=== PATIENT | male | born 1950 | race Hispanic/Latino ===

== ENCOUNTER 2017-08-16 10:02 | Outpatient (CLI) | payer MEDICARE ==
--- NOTE | 2017-08-16 11:59 | ULT ---
RIGHT UPPER QUADRANT ABDOMINAL ULTRASOUND: COMPARISON: 04/19/13. HISTORY: Hepatomegaly. TECHNIQUE: Multiplanar, hernandez scale, and color Doppler images were obtained in a right upper quadrant abdominal u ltrasound. FINDINGS: The liver is normal in echogenicity without focal lesions or intrahepatic ductal dilatation. There a re multiple shadowing gallstones in the gallbladder. There is no gallbladder wall thickening or dmitry cholecystic fluid. The common bile duct is upper limits of normal measuring 6-7 mm in size. The pancreas could not be visualized. There are multiple small echogenic foci in the right kidney me asuring up to 5 mm in size. These may represent nonobstructing renal calcifications. There is no ev idence of hydronephrosis in the right kidney which measures 13.4 cm in length. IMPRESSION: 1. Cholelithiasis. 2. Possible nonobstructing right renal calcifications. POS: [facility]
== END 2017-08-16 10:03 | disposition home or self-care (01) ==
LOC: ULT 10:02
PROVIDERS: ATTEND Family Medicine
DX: R16.0 Hepatomegaly, not elsewhere classified (principal); K80.20 Calculus of gallbladder without cholecystitis without obstruction
CPT/HCPCS: 76705

== ENCOUNTER 2018-01-23 07:20 | Outpatient (CLI) | payer MEDICARE, MEDICAID | END 2018-01-23 07:21 | disposition home or self-care (01) | LOC: BICULT 07:20 | PROVIDERS: ATTEND Family Medicine | DX: Z13.6 Encounter for screening for cardiovascular disorders (principal); I70.0 Atherosclerosis of aorta | CPT/HCPCS: 76706 ==

== ENCOUNTER 2020-10-24 14:39 | Outpatient (CLI) | payer MEDICARE, MEDICAID | END 2020-10-24 14:40 | disposition home or self-care (01) | LOC: BICRAD 14:39 | PROVIDERS: ATTEND Internal Medicine Hematology & Oncology | DX: C90.00 Multiple myeloma not having achieved remission (principal); E88.09 Other disorders of plasma-protein metabolism, not elsewhere classified | CPT/HCPCS: 77075 ==

== ENCOUNTER 2021-09-20 08:22 | Outpatient (CLI) | payer MEDICARE, MEDICAID ==
[2021-09-20 08:52] LABS: Estimated GFR-MDRD - POC Greater than 90
[2021-09-20] MEDS ORDERED: Iopamidol-370 76% 500 ML 1 ML ONE (09:38)
== END 2021-09-20 08:23 | disposition home or self-care (01) ==
LOC: BICCT 08:22
PROVIDERS: ATTEND Physician Assistant Medical
DX: K21.9 Gastro-esophageal reflux disease without esophagitis (principal); R63.4 Abnormal weight loss; K80.20 Calculus of gallbladder without cholecystitis without obstruction; K44.9 Diaphragmatic hernia without obstruction or gangrene
CPT/HCPCS: 74177; 82565

== ENCOUNTER 2021-09-28 14:44 | Outpatient (CLI) | payer MEDICARE, MEDICAID | END 2021-09-28 14:45 | disposition home or self-care (01) | LOC: RAD 14:44 | PROVIDERS: ATTEND Physician Assistant Medical | DX: K21.9 Gastro-esophageal reflux disease without esophagitis (principal); G31.84 Mild cognitive impairment of uncertain or unknown etiology; R63.4 Abnormal weight loss; R68.81 Early satiety | CPT/HCPCS: 71046 ==

== ENCOUNTER 2022-01-22 14:24 | Outpatient (CLI) | payer MEDICARE, MEDICAID | END 2022-01-22 14:25 | disposition home or self-care (01) | LOC: BICRAD 14:24 | PROVIDERS: ATTEND Family Medicine | DX: R06.89 Other abnormalities of breathing (principal); J84.10 Pulmonary fibrosis, unspecified | CPT/HCPCS: 71046 ==

== ENCOUNTER 2022-03-28 11:46 | Inpatient (IN) | payer OTHER, MEDICAID ==
[2022-03-28 13:53] LABS: #Eosinphils 0.2 thou/uL (0.0-0.7); #Lymphocytes 1.5 thou/uL (1.20-3.40); #Monocytes 0.6 thou/uL (0.11-0.59); #Neutrophils 5.7 thou/uL (1.40-6.50); %Basophils 0.5 % (0.0-1.0); %Eosinophils 2.4 % (0.0-10.0); %Lymphocytes 18.6 % (21.0-51.0); %Monocytes 7.5 % (0.0-10.0); Hemoglobin 15.9 g/dL (14.0-18.0); Mean Corpuscular HGB CONC 33.6 g/dL (32.0-36.0); Mean Corpuscular Hemoglobin 33.8 pg (27.0-31.0); Mean Platelet Volume 6.7 fL (7.4-10.4); Platelet Count 257 thou/uL (130-400); RBC Distribution Width 11.7 % (11.5-14.5); Red Blood Cell (RBC) Count 4.71 mill/uL (4.70-6.10); White Blood Cell (WBC) Count 8.1 thou/uL (4.8-10.8)
[2022-03-28] MEDS ORDERED: Iopamidol-370 76% 500 ML 1 ML ONE (14:10)
[2022-03-28 14:14] LABS: ALT (SGPT) 10 U/L (8-55); AST (SGOT) 14 U/L (5-34); Albumin 3.6 g/dL (3.4-4.8); Alkaline Phosphatase 82 U/L (40-110); Anion Gap 12 mmol/L (10-20); BUN (Urea Nitrogen) 9 mg/dL (8.4-25.7); Bilirubin, Total 0.6 mg/dL (0.2-1.2); Calc. Creatinine Clearance 0 mL/min (70-130); Calcium 9.5 mg/dL (7.8-10.44); Carbon Dioxide 29 mmol/L (23-31); Chloride 100 mmol/L (98-107); Estimated GFR 95; Globulin 4.6 g/dL (2.4-3.5); Glucose 110 mg/dL (83-110); Potassium 4.2 mmol/L (3.5-5.1); Protein, Total 8.2 g/dL (5.8-8.1); Sodium 137 mmol/L (136-145)
[2022-03-28 16:37] LABS: Bacteria/HPF None Seen HPF (None Seen); Bilirubin Negative (Negative); Blood, Urine Negative (Negative); Clarity Clear (Clear); Glucose, Urine (Dipstick) Normal (Negative); Ketone, Urine Negative (Negative); Leukocyte 75 Leu/uL (Negative); Nitrite Negative (Negative); Protein, Urine (Dipstick) Negative (Neg-Trace); RBC/HPF 0-3 HPF (0-3); Specific Gravity, Urine 1.033 (1.002-1.036); Squamous Epithelial 0-3 HPF (0-3); Urobilinogen Normal mg/dL (Less than 2)
[2022-03-28] MEDS: Melatonin 3 MG TAB PO SCH (21:25)
[2022-03-28] MEDS ORDERED: Acetaminophen 650 MG Suppository PR PRN (22:17)
[2022-03-28] MEDS ORDERED: Ondansetron PF 4 MG/2 ML Vial IVP PRN (22:17)
[2022-03-28] MEDS ORDERED: Ondansetron ODT 4 MG TAB PO PRN (22:17)
[2022-03-29] MEDS: methylPREDNISolone Sod Succ 40 MG VIAL IVP SCH ×2 (00:45→08:25)
[2022-03-29 04:49] LABS: #Eosinphils 0.1 thou/uL (0.0-0.7); #Lymphocytes 0.8 thou/uL (1.20-3.40); #Monocytes 0.1 thou/uL (0.11-0.59); #Neutrophils 5.8 thou/uL (1.40-6.50); %Basophils 0.3 % (0.0-1.0); %Eosinophils 1.4 % (0.0-10.0); %Lymphocytes 11.5 % (21.0-51.0); %Monocytes 1.4 % (0.0-10.0); %Neutrophils 85.5 % (42.0-75.0); Hemoglobin 15.5 g/dL (14.0-18.0); Mean Corpuscular HGB CONC 31.8 g/dL (32.0-36.0); Mean Corpuscular Hemoglobin 32.5 pg (27.0-31.0); Mean Platelet Volume 6.7 fL (7.4-10.4); Platelet Count 271 thou/uL (130-400); RBC Distribution Width 11.8 % (11.5-14.5); Red Blood Cell (RBC) Count 4.76 mill/uL (4.70-6.10); White Blood Cell (WBC) Count 6.8 thou/uL (4.8-10.8)
[2022-03-29 04:58] LABS: Anion Gap 14 mmol/L (10-20); BUN (Urea Nitrogen) 8 mg/dL (8.4-25.7); Calc. Creatinine Clearance 78 mL/min (70-130); Calcium 9.7 mg/dL (7.8-10.44); Carbon Dioxide 26 mmol/L (23-31); Chloride 101 mmol/L (98-107); Estimated GFR 97; Glucose 108 mg/dL (83-110); Potassium 4.9 mmol/L (3.5-5.1); Sodium 136 mmol/L (136-145)
[2022-03-29] MEDS: Amlodipine 10 MG TAB PO SCH (08:25)
[2022-03-29] MEDS: Donepezil HCl 5 MG TAB PO SCH (08:25)
[2022-03-29] MEDS: Enoxaparin Sodium 40 MG/0.4 ML SYRINGE SC SCH (08:25)
[2022-03-29 08:52] LABS: SARS-CoV-2 NAA Rapid Test Not Detected (NotDetected)
[2022-03-29] MEDS: Melatonin 3 MG TAB PO SCH (21:34)
[2022-03-30] MEDS: Enoxaparin Sodium 40 MG/0.4 ML SYRINGE SC SCH (08:45)
[2022-03-30] MEDS: Donepezil HCl 5 MG TAB PO SCH (08:45)
[2022-03-30] MEDS: methylPREDNISolone Sod Succ 40 MG VIAL IVP SCH (08:45)
[2022-03-30] MEDS: Amlodipine 10 MG TAB PO SCH (11:04)
[2022-03-30] MEDS: Melatonin 3 MG TAB PO SCH (20:28)
[2022-03-30] MEDS: Benzonatate 100 MG CAP PO PRN (20:29)
[2022-03-30] MEDS: Guaifenesin DM 100-10/5 ML UDCUP PO PRN (20:29)
[2022-03-31] MEDS: Amlodipine 10 MG TAB PO SCH (09:29)
[2022-03-31] MEDS: methylPREDNISolone Sod Succ 40 MG VIAL IVP SCH (09:29)
[2022-03-31] MEDS: Donepezil HCl 5 MG TAB PO SCH (09:29)
[2022-03-31] MEDS: Enoxaparin Sodium 40 MG/0.4 ML SYRINGE SC SCH (09:29)
[2022-03-31] MEDS ORDERED: Docusate Sodium 10 MG/1 ML Oral Suspension PO PRN (15:25)
[2022-03-31] MEDS: Polyethylene Glycol 3350 17 GM Packet PO PRN ×2 (15:50→21:47)
[2022-03-31] MEDS: Guaifenesin DM 100-10/5 ML UDCUP PO PRN (21:47)
[2022-03-31] MEDS: Melatonin 3 MG TAB PO SCH (21:48)
[2022-03-31] MEDS: Benzonatate 100 MG CAP PO PRN (21:48)
[2022-04-01] MEDS: Guaifenesin DM 100-10/5 ML UDCUP PO PRN (09:57)
[2022-04-01] MEDS: Acetaminophen 325 MG TAB PO PRN (09:58)
[2022-04-01] MEDS: methylPREDNISolone Sod Succ 40 MG VIAL IVP SCH (09:58)
[2022-04-01] MEDS: Benzonatate 100 MG CAP PO PRN (10:00)
[2022-04-01] MEDS: Enoxaparin Sodium 40 MG/0.4 ML SYRINGE SC SCH (10:00)
[2022-04-01] MEDS: Amlodipine 10 MG TAB PO SCH (10:01)
[2022-04-01] MEDS: Donepezil HCl 5 MG TAB PO SCH (10:01)
[2022-04-01] MEDS: Polyethylene Glycol 3350 17 GM Packet PO PRN (10:02)
[2022-04-01] MEDS: Melatonin 3 MG TAB PO SCH (20:34)
[2022-04-02] MEDS: Acetaminophen 325 MG TAB PO PRN (05:47)
[2022-04-02] MEDS: methylPREDNISolone Sod Succ 40 MG VIAL IVP SCH (08:37)
[2022-04-02] MEDS: Amlodipine 10 MG TAB PO SCH (08:37)
[2022-04-02] MEDS: Donepezil HCl 5 MG TAB PO SCH (08:37)
[2022-04-02] MEDS: Enoxaparin Sodium 40 MG/0.4 ML SYRINGE SC SCH (08:38)
[2022-04-02 08:57] LABS: Anion Gap 14 mmol/L (10-20); BUN (Urea Nitrogen) 13 mg/dL (8.4-25.7); Calc. Creatinine Clearance 79 mL/min (70-130); Calcium 9.8 mg/dL (7.8-10.44); Carbon Dioxide 35 mmol/L (23-31); Chloride 96 mmol/L (98-107); Estimated GFR 98; Glucose 100 mg/dL (83-110); Potassium 4.2 mmol/L (3.5-5.1); Sodium 141 mmol/L (136-145)
[2022-04-02] MEDS: Melatonin 3 MG TAB PO SCH (21:34)
[2022-04-03] MEDS: Guaifenesin DM 100-10/5 ML UDCUP PO PRN ×2 (04:04→20:48)
[2022-04-03] MEDS: Enoxaparin Sodium 40 MG/0.4 ML SYRINGE SC SCH (08:55)
[2022-04-03] MEDS: Amlodipine 10 MG TAB PO SCH (08:55)
[2022-04-03] MEDS: methylPREDNISolone Sod Succ 40 MG VIAL IVP SCH (08:56)
[2022-04-03] MEDS: Donepezil HCl 5 MG TAB PO SCH (08:56)
[2022-04-03] MEDS: Melatonin 3 MG TAB PO SCH (20:48)
[2022-04-04] MEDS: Polyethylene Glycol 3350 17 GM Packet PO PRN (08:51)
[2022-04-04] MEDS: Donepezil HCl 5 MG TAB PO SCH (08:52)
[2022-04-04] MEDS: Amlodipine 10 MG TAB PO SCH (08:52)
[2022-04-04] MEDS: Enoxaparin Sodium 40 MG/0.4 ML SYRINGE SC SCH (08:52)
[2022-04-04] MEDS: methylPREDNISolone Sod Succ 40 MG VIAL IVP SCH (08:52)
[2022-04-04 17:42] VITALS: BP 134/70; TEMP 98.7
== END 2022-04-04 18:38 | disposition home or self-care (01) | DRG 196 ==
LOC: ERS 11:46 → 2NO 16:48
PROVIDERS: ADMIT Family Medicine; ATTEND Family Medicine
DX: J84.10 Pulmonary fibrosis, unspecified (principal); J96.01 Acute respiratory failure with hypoxia; Z20.822 Contact with and (suspected) exposure to COVID-19; K80.20 Calculus of gallbladder without cholecystitis without obstruction; K59.00 Constipation, unspecified; K21.9 Gastro-esophageal reflux disease without esophagitis; I10 Essential (primary) hypertension; F03.90 Unspecified dementia, unspecified severity, without behavioral disturbance, psychotic disturbance, mood disturbance, and anxiety; Z79.899 Other long term (current) drug therapy; Z87.891 Personal history of nicotine dependence
CPT/HCPCS: 36415; 71045; 71275; 74177; 80048; 80053; 81003; 81015; 83880; 84484; 85025; 87811; 93005; 94640; J1650; J2920; J7620; Q9967; U0002; U0003; U0005

== ENCOUNTER 2022-04-22 21:20 | Emergency (ER) | payer OTHER, MEDICAID ==
[2022-04-22 22:25] LABS: #Eosinphils 0.5 thou/uL (0.0-0.7); #Lymphocytes 2.1 thou/uL (1.20-3.40); #Monocytes 0.6 thou/uL (0.11-0.59); %Basophils 0.1 % (0.0-1.0); %Eosinophils 7.3 % (0.0-10.0); %Lymphocytes 29.2 % (21.0-51.0); %Monocytes 7.7 % (0.0-10.0); %Neutrophils 55.7 % (42.0-75.0); Hemoglobin 15.1 g/dL (14.0-18.0); Mean Corpuscular HGB CONC 32.3 g/dL (32.0-36.0); Mean Corpuscular Hemoglobin 33.1 pg (27.0-31.0); Mean Platelet Volume 6.3 fL (7.4-10.4); Platelet Count 347 thou/uL (130-400); RBC Distribution Width 11.3 % (11.5-14.5); Red Blood Cell (RBC) Count 4.55 mill/uL (4.70-6.10); White Blood Cell (WBC) Count 7.2 thou/uL (4.8-10.8)
[2022-04-22 22:51] LABS: ALT (SGPT) 11 U/L (8-55); AST (SGOT) 16 U/L (5-34); Albumin 3.2 g/dL (3.4-4.8); Alkaline Phosphatase 86 U/L (40-110); Anion Gap 12 mmol/L (10-20); BUN (Urea Nitrogen) 9 mg/dL (8.4-25.7); Bilirubin, Total 0.5 mg/dL (0.2-1.2); Calc. Creatinine Clearance 0 mL/min (70-130); Calcium 9.6 mg/dL (7.8-10.44); Carbon Dioxide 32 mmol/L (23-31); Chloride 97 mmol/L (98-107); Estimated GFR 96; Globulin 4.6 g/dL (2.4-3.5); Glucose 111 mg/dL (83-110); Potassium 4.3 mmol/L (3.5-5.1); Protein, Total 7.8 g/dL (5.8-8.1); Sodium 137 mmol/L (136-145)
[2022-04-22] MEDS ORDERED: Lidocaine Viscous Sol 2% 15 ml UD Cup ONE (23:13)
[2022-04-22] MEDS ORDERED: Mag-Al 1200 mg/1200 mg/30 ML UDCUP ONE (23:13)
[2022-04-22] MEDS ORDERED: Famotidine 20 MG TAB ONE (23:13)
== END 2022-04-23 00:24 | disposition home or self-care (01) ==
LOC: ERS 21:20
DX: K80.50 Calculus of bile duct without cholangitis or cholecystitis without obstruction (principal); K21.9 Gastro-esophageal reflux disease without esophagitis; I10 Essential (primary) hypertension; Z87.891 Personal history of nicotine dependence; Z79.899 Other long term (current) drug therapy
CPT/HCPCS: 36415; 80053; 85025

== ENCOUNTER 2022-04-24 01:37 | Inpatient (IN) | payer OTHER, MEDICAID ==
[2022-04-24 02:22] LABS: #Lymphocytes 1.3 thou/uL (1.20-3.40); #Neutrophils 10.3 thou/uL (1.40-6.50); %Basophils 0.2 % (0.0-1.0); %Eosinophils 0.1 % (0.0-10.0); %Lymphocytes 10.2 % (21.0-51.0); %Monocytes 8.2 % (0.0-10.0); %Neutrophils 81.3 % (42.0-75.0); Mean Corpuscular HGB CONC 33.7 g/dL (32.0-36.0); Mean Corpuscular Hemoglobin 33.9 pg (27.0-31.0); Mean Platelet Volume 6.3 fL (7.4-10.4); Platelet Count 326 thou/uL (130-400); RBC Distribution Width 11.3 % (11.5-14.5); White Blood Cell (WBC) Count 12.7 thou/uL (4.8-10.8)
[2022-04-24] MEDS ORDERED: Ondansetron PF 4 MG/2 ML Vial ONE ×2 (02:34→16:30)
[2022-04-24] MEDS ORDERED: Morphine 4 MG/ML VIAL ONE (02:34)
[2022-04-24 02:43] LABS: ALT (SGPT) 8 U/L (8-55); AST (SGOT) 15 U/L (5-34); Albumin 3.3 g/dL (3.4-4.8); Alkaline Phosphatase 85 U/L (40-110); Anion Gap 13 mmol/L (10-20); BUN (Urea Nitrogen) 8 mg/dL (8.4-25.7); Bilirubin, Total 0.7 mg/dL (0.2-1.2); Calc. Creatinine Clearance 0 mL/min (70-130); Calcium 9.4 mg/dL (7.8-10.44); Carbon Dioxide 30 mmol/L (23-31); Chloride 95 mmol/L (98-107); Estimated GFR 94; Globulin 4.4 g/dL (2.4-3.5); Glucose 129 mg/dL (83-110); Lipase 12 U/L (8-78); Potassium 4.9 mmol/L (3.5-5.1); Protein, Total 7.7 g/dL (5.8-8.1); Sodium 133 mmol/L (136-145)
[2022-04-24] MEDS ORDERED: Piperacillin/Tazobactam 3.375 GM VIAL ONE ×2 (03:25→15:58)
[2022-04-24 05:21] LABS: SARS-CoV-2 NAA Rapid Test Not Detected (NotDetected)
[2022-04-24] MEDS ORDERED: Ondansetron PF 4 MG/2 ML Vial IVP PRN (06:00)
[2022-04-24] MEDS ORDERED: Ondansetron ODT 4 MG TAB SL PRN (06:00)
[2022-04-24] MEDS ORDERED: Sodium Chloride 0.9% 1,000 ML IV SCH (06:00)
[2022-04-24] MEDS ORDERED: Morphine 4 MG/ML VIAL SLOW IVP PRN ×2 (06:01→17:48)
[2022-04-24] MEDS ORDERED: Piperacillin/Tazobactam 3.375 GM in Sodium Chloride 0.9% 100 ML IVPB SCH (08:00)
[2022-04-24] MEDS ORDERED: Iopamidol-370 76% 500 ML 1 ML ONE (09:05)
[2022-04-24] MEDS ORDERED: Sodium Chloride 0.9% 100 ML ONE (15:58)
[2022-04-24] MEDS ORDERED: Bupivacaine/Epinephrine 0.25% 30 ML VIAL ONE (16:14)
[2022-04-24] MEDS ORDERED: SUGAMMADEX SODIUM 200 MG/2 ML VIAL ONE (16:20)
[2022-04-24] MEDS ORDERED: fentaNYL Citrate/PF 100 MCG/2 ML SYRINGE ONE (16:20)
[2022-04-24] MEDS ORDERED: PROPOFOL 200 MG/20 ML VIAL ONE (16:30)
[2022-04-24] MEDS ORDERED: Phenylephrine 10 MG/ML VIAL ONE (16:30)
[2022-04-24] MEDS ORDERED: Dexamethasone 20 MG/5 ML VIAL ONE (16:30)
[2022-04-24] MEDS ORDERED: Rocuronium Bromide 10 MG/ML (10ML VIAL) ONE (16:30)
[2022-04-24] MEDS ORDERED: Acetaminophen 500 MG TAB PO PRN (17:48)
[2022-04-24] MEDS ORDERED: Morphine 2 MG/ML VIAL SLOW IVP PRN (17:48)
[2022-04-24] MEDS ORDERED: Ketorolac Tromethamine 30 MG/ML VIAL IVP SCH (18:00)
[2022-04-24] MEDS ORDERED: Acetaminophen 500 MG TAB PO SCH (18:00)
[2022-04-24] MEDS ORDERED: Fentanyl 100 MCG/2 ML VIAL ONE (18:12)
[2022-04-24] MEDS: Piperacillin/Tazobactam 3.375 GM in Sodium Chloride 0.9% 100 ML IVPB SCH (19:49)
[2022-04-24] MEDS: Enoxaparin Sodium 40 MG/0.4 ML SYRINGE SC SCH (20:42)
[2022-04-25] MEDS: Ketorolac Tromethamine 30 MG/ML VIAL IVP SCH ×4 (00:38→18:43)
[2022-04-25] MEDS: Piperacillin/Tazobactam 3.375 GM in Sodium Chloride 0.9% 100 ML IVPB SCH ×3 (01:38→18:44)
[2022-04-25 03:56] LABS: #Lymphocytes 0.6 thou/uL (1.20-3.40); #Monocytes 0.5 thou/uL (0.11-0.59); #Neutrophils 9.4 thou/uL (1.40-6.50); %Lymphocytes 5.8 % (21.0-51.0); %Monocytes 4.7 % (0.0-10.0); %Neutrophils 89.5 % (42.0-75.0); Hemoglobin 13.7 g/dL (14.0-18.0); Mean Corpuscular HGB CONC 32.3 g/dL (32.0-36.0); Mean Corpuscular Hemoglobin 33.5 pg (27.0-31.0); Mean Platelet Volume 6.5 fL (7.4-10.4); Platelet Count 266 thou/uL (130-400); RBC Distribution Width 11.4 % (11.5-14.5); Red Blood Cell (RBC) Count 4.08 mill/uL (4.70-6.10); White Blood Cell (WBC) Count 10.5 thou/uL (4.8-10.8)
[2022-04-25 04:24] LABS: ALT (SGPT) 21 U/L (8-55); AST (SGOT) 43 U/L (5-34); Albumin 2.8 g/dL (3.4-4.8); Alkaline Phosphatase 67 U/L (40-110); Anion Gap 13 mmol/L (10-20); BUN (Urea Nitrogen) 9 mg/dL (8.4-25.7); Bilirubin, Total 0.6 mg/dL (0.2-1.2); Calc. Creatinine Clearance 68 mL/min (70-130); Calcium 9.4 mg/dL (7.8-10.44); Carbon Dioxide 29 mmol/L (23-31); Chloride 97 mmol/L (98-107); Estimated GFR 95; Globulin 4.1 g/dL (2.4-3.5); Glucose 138 mg/dL (83-110); Magnesium 2.1 mg/dL (1.6-2.6); Protein, Total 6.9 g/dL (5.8-8.1); Sodium 134 mmol/L (136-145)
[2022-04-25] MEDS: Polyethylene Glycol 3350 17 GM Packet PO SCH (09:54)
[2022-04-25] MEDS ORDERED: Ketorolac Tromethamine 30 MG/ML VIAL IVP PRN (19:26)
[2022-04-25] MEDS: Enoxaparin Sodium 40 MG/0.4 ML SYRINGE SC SCH (21:17)
[2022-04-25] MEDS: Amoxicillin/Potassium Clav 500 MG TAB PO SCH (21:17)
[2022-04-26 04:31] LABS: HIV (1/2) Antibody/Antigen Non-Reactive (NonReactive); HIV 1/2 INDEX 0.21 S/CO (<1.00)
[2022-04-26 06:29] VITALS: BMI 24.7
[2022-04-26 07:46] VITALS: TEMP 97.7
[2022-04-26] MEDS: traMADol HCl 50 MG TAB PO PRN ×2 (09:33→16:09)
[2022-04-26] MEDS: Polyethylene Glycol 3350 17 GM Packet PO SCH (09:34)
[2022-04-26] MEDS: Amoxicillin/Potassium Clav 500 MG TAB PO SCH (09:37)
[2022-04-26 11:22] VITALS: BP 114/67
== END 2022-04-26 16:54 | disposition home or self-care (01) | DRG 418 ==
LOC: ERS 01:37 → SURG A 03:16 → IMCU/EMU 18:48 → OBSVTOIN 19:13
PROVIDERS: ADMIT Specialist; ATTEND Specialist
PROC: 0FT44ZZ Resection of Gallbladder, Percutaneous Endoscopic Approach (ICD-10-PCS; principal; 2022-04-24)
DX: K80.00 Calculus of gallbladder with acute cholecystitis without obstruction (principal); J96.11 Chronic respiratory failure with hypoxia; J84.10 Pulmonary fibrosis, unspecified; Z20.822 Contact with and (suspected) exposure to COVID-19; K21.9 Gastro-esophageal reflux disease without esophagitis; I10 Essential (primary) hypertension; J44.9 Chronic obstructive pulmonary disease, unspecified; F03.90 Unspecified dementia, unspecified severity, without behavioral disturbance, psychotic disturbance, mood disturbance, and anxiety; Z87.891 Personal history of nicotine dependence; Z79.899 Other long term (current) drug therapy; Z99.81 Dependence on supplemental oxygen
CPT/HCPCS: 36415; 74177; 76705; 80053; 83690; 83735; 84484; 85025; 87389; 88304; 93005; 94760; 96366; C1713; G0378; J1100; J1650; J1885; J2270; J2370; J2405; J2543; J2704; J3010; J3490; J7050; J7620; Q9967; U0002

== ENCOUNTER 2022-04-27 16:25 | Inpatient (IN) | payer OTHER, MEDICAID ==
[~2022-04-27 16:25] MED LIST: Iopamidol-370 76% 500 ML 1 ML ONE
[2022-04-27] MEDS ORDERED: Azithromycin 500 MG VIAL ONE (17:05)
[2022-04-27] MEDS ORDERED: Magnesium 2 GM/50 ML BAG (IN WATER) ONE ×2 (17:05→17:06)
[2022-04-27] MEDS ORDERED: methylPREDNISolone Sod Succ/PF 125 MG/2 ML VIAL ONE (17:05)
[2022-04-27 17:12] LABS: #Eosinphils 0.3 thou/uL (0.0-0.7); #Lymphocytes 1.7 thou/uL (1.20-3.40); #Monocytes 0.7 thou/uL (0.11-0.59); #Neutrophils 5.1 thou/uL (1.40-6.50); %Basophils 0.1 % (0.0-1.0); %Eosinophils 3.3 % (0.0-10.0); %Lymphocytes 21.8 % (21.0-51.0); %Monocytes 8.8 % (0.0-10.0); Hemoglobin 13.3 g/dL (14.0-18.0); Mean Corpuscular HGB CONC 31.8 g/dL (32.0-36.0); Mean Corpuscular Hemoglobin 33.1 pg (27.0-31.0); Mean Platelet Volume 6.3 fL (7.4-10.4); Platelet Count 287 thou/uL (130-400); RBC Distribution Width 11.4 % (11.5-14.5); Red Blood Cell (RBC) Count 4.02 mill/uL (4.70-6.10); White Blood Cell (WBC) Count 7.8 thou/uL (4.8-10.8)
[2022-04-27 17:25] LABS: Analyzer IN Cardio ER; Calcium, Ionized (venous) 1.18 mmol/L (1.16-1.32); Chloride (VBG) 93 mmol/L (98-106); Hemoglobin (Hb) 19.9 g/dL (12.6-17.4); Potassium (VBG) 4.68 mmol/L (3.70-5.30); Sodium 130.2 mmol/L (133-146); pH (venous) 7.39 (7.32-7.43)
[2022-04-27 17:27] LABS: Actual Bicarbonate (HCO3v) 36 mEq/L (22-28)
[2022-04-27 17:33] LABS: ALT (SGPT) 21 U/L (8-55); AST (SGOT) 26 U/L (5-34); Alkaline Phosphatase 67 U/L (40-110); Anion Gap 10 mmol/L (10-20); BUN (Urea Nitrogen) 7 mg/dL (8.4-25.7); Bilirubin, Total 0.7 mg/dL (0.2-1.2); Calc. Creatinine Clearance 0 mL/min (70-130); Calcium 9.5 mg/dL (7.8-10.44); Carbon Dioxide 33 mmol/L (23-31); Chloride 96 mmol/L (98-107); Estimated GFR 98; Globulin 4.2 g/dL (2.4-3.5); Glucose 95 mg/dL (83-110); Lipase 22 U/L (8-78); Potassium 4.9 mmol/L (3.5-5.1); Protein, Total 7.2 g/dL (5.8-8.1); Sodium 134 mmol/L (136-145)
[2022-04-27] MEDS ORDERED: Acetaminophen 325 MG TAB PO PRN (20:00)
[2022-04-27] MEDS ORDERED: Ondansetron ODT 4 MG TAB SL PRN (20:00)
[2022-04-27] MEDS ORDERED: Ondansetron PF 4 MG/2 ML Vial IVP PRN (20:00)
[2022-04-27] MEDS ORDERED: Lidocaine 1% w/Epinephrine 1:100K 20 ML VIAL ONE ×2 (20:01→20:04)
[2022-04-27 23:28] VITALS: BMI 20.2
[2022-04-27] MEDS: Sodium Chloride 0.9% 1,000 ML IV SCH (23:28)
[2022-04-28] MEDS ORDERED: Benzonatate 100 MG CAP PO SCH (02:30)
[2022-04-28] MEDS ORDERED: Acetaminophen 650 MG Suppository PR PRN (02:59)
[2022-04-28] MEDS ORDERED: Benzonatate 100 MG CAP PO PRN (03:04)
[2022-04-28 04:23] LABS: #Lymphocytes 0.9 thou/uL (1.20-3.40); #Monocytes 0.2 thou/uL (0.11-0.59); #Neutrophils 3.9 thou/uL (1.40-6.50); %Basophils 0.3 % (0.0-1.0); %Eosinophils 0.1 % (0.0-10.0); %Lymphocytes 18.1 % (21.0-51.0); %Monocytes 4.6 % (0.0-10.0); Hemoglobin 12.9 g/dL (14.0-18.0); Mean Corpuscular HGB CONC 31.9 g/dL (32.0-36.0); Mean Corpuscular Hemoglobin 33.2 pg (27.0-31.0); Mean Platelet Volume 6.6 fL (7.4-10.4); Platelet Count 311 thou/uL (130-400); RBC Distribution Width 11.5 % (11.5-14.5)
[2022-04-28 04:33] LABS: Base Excess (BEa) 5.3 mEq/L (-2.0 to +3.0); CO2 Tension 49.7 mmHg (35.0-45.0); Calcium, Ionized (arterial) 1.23 mmol/L (1.12-1.30); Carboxyhemoglobin (COHb) 1.3 gm% (0.0-3.0); Hemoglobin (Hb) 13.9 g/dL (14.0-18.0); O2 Tension (PaO2), arterial 70.5 mmHg (> 70.0); Potassium - ABG Lab 4.78 mmol/L (3.70-5.30); pH, Arterial 7.41 (7.35-7.45)
[2022-04-28 04:44] LABS: Anion Gap 12 mmol/L (10-20); BUN (Urea Nitrogen) 10 mg/dL (8.4-25.7); Calc. Creatinine Clearance 88 mL/min (70-130); Calcium 9.1 mg/dL (7.8-10.44); Carbon Dioxide 30 mmol/L (23-31); Chloride 98 mmol/L (98-107); Estimated GFR 101; Glucose 119 mg/dL (83-110); Potassium 4.8 mmol/L (3.5-5.1); Sodium 135 mmol/L (136-145)
[2022-04-28] MEDS: Polyethylene Glycol 3350 17 GM Packet PO SCH (09:42)
[2022-04-28] MEDS: Enoxaparin Sodium 40 MG/0.4 ML SYRINGE SC SCH (09:45)
[2022-04-28] MEDS: Sodium Chloride 0.9% 1,000 ML IV SCH (10:30)
[2022-04-28] MEDS: traMADol HCl 50 MG TAB PO PRN (20:31)
[2022-04-29] MEDS: Enoxaparin Sodium 40 MG/0.4 ML SYRINGE SC SCH (08:19)
[2022-04-29] MEDS: Polyethylene Glycol 3350 17 GM Packet PO SCH (08:19)
[2022-04-29] MEDS: traMADol HCl 50 MG TAB PO PRN (08:20)
[2022-04-29] MEDS: Ketorolac Tromethamine 30 MG/ML VIAL IVP SCH ×3 (13:13→23:48)
[2022-04-30 04:48] LABS: #Eosinphils 0.4 thou/uL (0.0-0.7); #Lymphocytes 1.3 thou/uL (1.20-3.40); #Neutrophils 5.4 thou/uL (1.40-6.50); %Basophils 0.2 % (0.0-1.0); %Lymphocytes 16.4 % (21.0-51.0); %Monocytes 12.2 % (0.0-10.0); %Neutrophils 66.1 % (42.0-75.0); Hemoglobin 12.6 g/dL (14.0-18.0); Mean Corpuscular HGB CONC 31.9 g/dL (32.0-36.0); Mean Corpuscular Hemoglobin 33.2 pg (27.0-31.0); Mean Platelet Volume 6.4 fL (7.4-10.4); Platelet Count 249 thou/uL (130-400); RBC Distribution Width 11.6 % (11.5-14.5); Red Blood Cell (RBC) Count 3.79 mill/uL (4.70-6.10); White Blood Cell (WBC) Count 8.2 thou/uL (4.8-10.8)
[2022-04-30 05:07] LABS: Anion Gap 8 mmol/L (10-20); BUN (Urea Nitrogen) 13 mg/dL (8.4-25.7); Calc. Creatinine Clearance 71 mL/min (70-130); Calcium 9.1 mg/dL (7.8-10.44); Carbon Dioxide 35 mmol/L (23-31); Chloride 98 mmol/L (98-107); Estimated GFR 96; Glucose 95 mg/dL (83-110); Potassium 4.6 mmol/L (3.5-5.1); Sodium 136 mmol/L (136-145)
[2022-04-30] MEDS: Ketorolac Tromethamine 30 MG/ML VIAL IVP SCH ×4 (07:22→23:41)
[2022-04-30] MEDS ORDERED: Lidocaine 1% (PF) 30 ML VIAL IJ SCH (08:30)
[2022-04-30] MEDS: Enoxaparin Sodium 40 MG/0.4 ML SYRINGE SC SCH (14:11)
[2022-04-30] MEDS: Polyethylene Glycol 3350 17 GM Packet PO SCH (14:12)
[2022-05-01 05:01] LABS: #Eosinphils 0.5 thou/uL (0.0-0.7); #Lymphocytes 1.5 thou/uL (1.20-3.40); #Monocytes 1.1 thou/uL (0.11-0.59); #Neutrophils 7.5 thou/uL (1.40-6.50); %Eosinophils 4.3 % (0.0-10.0); %Lymphocytes 14.3 % (21.0-51.0); %Monocytes 10.2 % (0.0-10.0); %Neutrophils 71.2 % (42.0-75.0); Hemoglobin 12.7 g/dL (14.0-18.0); Mean Corpuscular HGB CONC 32.3 g/dL (32.0-36.0); Mean Corpuscular Hemoglobin 32.9 pg (27.0-31.0); Mean Platelet Volume 6.4 fL (7.4-10.4); Platelet Count 262 thou/uL (130-400); RBC Distribution Width 11.7 % (11.5-14.5); Red Blood Cell (RBC) Count 3.85 mill/uL (4.70-6.10); White Blood Cell (WBC) Count 10.5 thou/uL (4.8-10.8)
[2022-05-01 05:22] LABS: Anion Gap 10 mmol/L (10-20); BUN (Urea Nitrogen) 12 mg/dL (8.4-25.7); Calc. Creatinine Clearance 76 mL/min (70-130); Calcium 9.4 mg/dL (7.8-10.44); Carbon Dioxide 32 mmol/L (23-31); Chloride 99 mmol/L (98-107); Estimated GFR 98; Glucose 91 mg/dL (83-110); Potassium 4.4 mmol/L (3.5-5.1); Sodium 137 mmol/L (136-145)
[2022-05-01] MEDS: Ketorolac Tromethamine 30 MG/ML VIAL IVP SCH ×2 (06:00→15:16)
[2022-05-01] MEDS: Enoxaparin Sodium 40 MG/0.4 ML SYRINGE SC SCH (08:25)
[2022-05-01] MEDS: Polyethylene Glycol 3350 17 GM Packet PO SCH (08:25)
[2022-05-01] MEDS: traMADol HCl 50 MG TAB PO PRN ×2 (16:18→23:43)
[2022-05-02 04:45] LABS: #Eosinphils 0.4 thou/uL (0.0-0.7); #Lymphocytes 1.2 thou/uL (1.20-3.40); #Neutrophils 6.5 thou/uL (1.40-6.50); %Basophils 0.1 % (0.0-1.0); %Eosinophils 4.1 % (0.0-10.0); %Lymphocytes 12.9 % (21.0-51.0); %Monocytes 10.9 % (0.0-10.0); Hemoglobin 12.5 g/dL (14.0-18.0); Mean Corpuscular HGB CONC 32.5 g/dL (32.0-36.0); Mean Corpuscular Hemoglobin 33.3 pg (27.0-31.0); Mean Platelet Volume 6.3 fL (7.4-10.4); Platelet Count 293 thou/uL (130-400); RBC Distribution Width 11.6 % (11.5-14.5); Red Blood Cell (RBC) Count 3.76 mill/uL (4.70-6.10)
[2022-05-02 05:10] LABS: Anion Gap 11 mmol/L (10-20); BUN (Urea Nitrogen) 9 mg/dL (8.4-25.7); Calc. Creatinine Clearance 85 mL/min (70-130); Calcium 9.1 mg/dL (7.8-10.44); Carbon Dioxide 32 mmol/L (23-31); Chloride 97 mmol/L (98-107); Estimated GFR 101; Glucose 102 mg/dL (83-110); Potassium 4.6 mmol/L (3.5-5.1); Sodium 135 mmol/L (136-145)
[2022-05-02] MEDS: traMADol HCl 50 MG TAB PO PRN ×2 (05:56→22:19)
[2022-05-02] MEDS: Polyethylene Glycol 3350 17 GM Packet PO SCH (09:22)
[2022-05-02] MEDS: Enoxaparin Sodium 40 MG/0.4 ML SYRINGE SC SCH (09:22)
[2022-05-03 04:29] LABS: #Eosinphils 0.4 thou/uL (0.0-0.7); #Lymphocytes 1.1 thou/uL (1.20-3.40); #Monocytes 1.1 thou/uL (0.11-0.59); #Neutrophils 5.5 thou/uL (1.40-6.50); %Basophils 0.3 % (0.0-1.0); %Eosinophils 4.6 % (0.0-10.0); %Lymphocytes 13.8 % (21.0-51.0); %Monocytes 13.3 % (0.0-10.0); %Neutrophils 67.9 % (42.0-75.0); Hemoglobin 12.8 g/dL (14.0-18.0); Mean Corpuscular HGB CONC 32.3 g/dL (32.0-36.0); Mean Corpuscular Hemoglobin 33.4 pg (27.0-31.0); Platelet Count 314 thou/uL (130-400); RBC Distribution Width 11.4 % (11.5-14.5); Red Blood Cell (RBC) Count 3.82 mill/uL (4.70-6.10); White Blood Cell (WBC) Count 8.1 thou/uL (4.8-10.8)
[2022-05-03 04:49] LABS: Anion Gap 10 mmol/L (10-20); BUN (Urea Nitrogen) 8 mg/dL (8.4-25.7); Calc. Creatinine Clearance 92 mL/min (70-130); Calcium 9.3 mg/dL (7.8-10.44); Carbon Dioxide 35 mmol/L (23-31); Chloride 94 mmol/L (98-107); Estimated GFR 104; Glucose 94 mg/dL (83-110); Potassium 4.7 mmol/L (3.5-5.1); Sodium 134 mmol/L (136-145)
[2022-05-03] MEDS: Enoxaparin Sodium 40 MG/0.4 ML SYRINGE SC SCH (09:35)
[2022-05-03] MEDS: Polyethylene Glycol 3350 17 GM Packet PO SCH (09:39)
[2022-05-03] MEDS: traMADol HCl 50 MG TAB PO PRN (14:27)
[2022-05-04] MEDS: Polyethylene Glycol 3350 17 GM Packet PO SCH (08:23)
[2022-05-04] MEDS: Enoxaparin Sodium 40 MG/0.4 ML SYRINGE SC SCH (09:25)
[2022-05-04] MEDS ORDERED: ALPRAZolam 0.25 MG TAB PO PRN (09:28)
[2022-05-05] MEDS: Polyethylene Glycol 3350 17 GM Packet PO SCH (10:39)
[2022-05-05] MEDS: Enoxaparin Sodium 40 MG/0.4 ML SYRINGE SC SCH (10:40)
[2022-05-05] MEDS: traMADol HCl 50 MG TAB PO PRN (18:45)
[2022-05-06] MEDS: Enoxaparin Sodium 40 MG/0.4 ML SYRINGE SC SCH (10:27)
[2022-05-06] MEDS: Polyethylene Glycol 3350 17 GM Packet PO SCH (10:28)
[2022-05-07] MEDS: Enoxaparin Sodium 40 MG/0.4 ML SYRINGE SC SCH (09:59)
[2022-05-07] MEDS: Polyethylene Glycol 3350 17 GM Packet PO SCH (09:59)
[2022-05-07] MEDS ORDERED: Lactated Ringer's 500 ML IV SCH (16:15)
[2022-05-07] MEDS: traMADol HCl 50 MG TAB PO PRN (23:48)
[2022-05-08] MEDS: Enoxaparin Sodium 40 MG/0.4 ML SYRINGE SC SCH (09:15)
[2022-05-08] MEDS: Polyethylene Glycol 3350 17 GM Packet PO SCH (09:17)
[2022-05-08] MEDS ORDERED: oxyCODONE 5 MG TAB PO PRN (15:43)
[2022-05-08] MEDS: Morphine 2 MG/ML VIAL SLOW IVP PRN (16:08)
[2022-05-09] MEDS: Morphine 2 MG/ML VIAL SLOW IVP PRN ×2 (05:45→14:51)
[2022-05-09 08:15] VITALS: TEMP 97.8
[2022-05-09] MEDS: Polyethylene Glycol 3350 17 GM Packet PO SCH (09:21)
[2022-05-09] MEDS: Enoxaparin Sodium 40 MG/0.4 ML SYRINGE SC SCH (09:21)
[2022-05-09 14:03] VITALS: BP 107/65
== END 2022-05-09 15:05 | disposition hospice, inpatient (51) | DRG 205 ==
LOC: ERS 16:25 → 2NO 19:53 → INTOOBSV 19:53 → OBSVTOIN 04-29 14:28
PROVIDERS: ADMIT Student in an Organized Health Care Education/Training Program; ATTEND Hospitalist
PROC: 0W9930Z Drainage of Right Pleural Cavity with Drainage Device, Percutaneous Approach (ICD-10-PCS; principal; 2022-04-29)
DX: J98.4 Other disorders of lung (principal); J96.01 Acute respiratory failure with hypoxia; J96.02 Acute respiratory failure with hypercapnia; R64 Cachexia; J93.12 Secondary spontaneous pneumothorax; J93.82 Other air leak; J98.2 Interstitial emphysema; Z66 Do not resuscitate; Z51.5 Encounter for palliative care; I10 Essential (primary) hypertension; F03.90 Unspecified dementia, unspecified severity, without behavioral disturbance, psychotic disturbance, mood disturbance, and anxiety; K21.9 Gastro-esophageal reflux disease without esophagitis; Z87.891 Personal history of nicotine dependence; Z90.49 Acquired absence of other specified parts of digestive tract; Z99.81 Dependence on supplemental oxygen; Z20.822 Contact with and (suspected) exposure to COVID-19
CPT/HCPCS: 32551; 36415; 36416; 71045; 71275; 80048; 80053; 82805; 83690; 83880; 84484; 85025; 87811; 93005; 94640; 96372; 96374; 96375; G0378; J0456; J1650; J1885; J2001; J2270; J2930; J3475; J7050; J7120; J7620; Q9967; U0003; U0005

== ENCOUNTER 2022-05-09 15:30 | Inpatient (IN) | payer OTHER ==
[2022-05-09] MEDS ORDERED: Haloperidol 1 MG TAB PO PRN (16:50)
[2022-05-09] MEDS ORDERED: Ondansetron ODT 4 MG TAB PO PRN (17:00)
[2022-05-09] MEDS ORDERED: Senokot S 8.6-50 MG TAB PO PRN (17:00)
[2022-05-09] MEDS ORDERED: Loperamide HCl 2 MG CAP PO PRN (17:00)
[2022-05-09] MEDS ORDERED: Hyoscyamine Sulfate SL 0.125 mg Tablet SL PRN (17:00)
[2022-05-09] MEDS ORDERED: Ondansetron PF 4 MG/2 ML Vial IVP PRN (17:00)
[2022-05-09] MEDS ORDERED: Acetaminophen 325 MG TAB PO PRN (17:00)
[2022-05-09] MEDS ORDERED: diphenhydrAMINE 25 MG CAP PO PRN (17:00)
[2022-05-09] MEDS ORDERED: Scopolamine 1.5 mg/72 hour Patch TOP PRN (17:00)
[2022-05-09] MEDS ORDERED: Zolpidem Tartrate 5 MG TAB PO PRN (17:00)
[2022-05-09 18:02] VITALS: BMI 19.5
[2022-05-09] MEDS: Morphine 2 MG/ML VIAL SLOW IVP PRN (22:00)
[2022-05-10] MEDS: Morphine 2 MG/ML VIAL SLOW IVP PRN (04:59)
[2022-05-10] MEDS: Lorazepam 1 MG TAB PO PRN (06:00)
[2022-05-10] MEDS: oxyCODONE 5 MG TAB PO PRN ×2 (06:01→20:44)
[2022-05-10] MEDS: Polyethylene Glycol 3350 17 GM Packet PO SCH ×2 (07:59→10:46)
[2022-05-11] MEDS: oxyCODONE 5 MG TAB PO PRN ×2 (00:06→08:39)
[2022-05-11] MEDS: Polyethylene Glycol 3350 17 GM Packet PO SCH (08:39)
[2022-05-11] MEDS ORDERED: Bisacodyl 10 MG SUPP PR PRN (10:39)
[2022-05-11] MEDS ORDERED: Chloraseptic Spray 180 ml Bottle PO PRN (13:19)
[2022-05-11] MEDS: Lorazepam 1 MG TAB PO PRN (18:23)
[2022-05-11] MEDS: Morphine 4 MG/ML VIAL SLOW IVP PRN (19:36)
[2022-05-12] MEDS: Morphine 4 MG/ML VIAL SLOW IVP PRN ×7 (00:03→23:17)
[2022-05-12] MEDS: Polyethylene Glycol 3350 17 GM Packet PO SCH (08:26)
[2022-05-12] MEDS: Lorazepam 2 MG/ML VIAL SLOW IVP PRN (15:26)
[2022-05-13] MEDS: Lorazepam 2 MG/ML VIAL SLOW IVP PRN (03:16)
[2022-05-13] MEDS: Morphine 4 MG/ML VIAL SLOW IVP PRN ×4 (05:17→18:29)
[2022-05-13] MEDS: Polyethylene Glycol 3350 17 GM Packet PO SCH (08:08)
[2022-05-14] MEDS: Morphine 4 MG/ML VIAL SLOW IVP PRN ×7 (00:31→13:55)
[2022-05-14] MEDS: Polyethylene Glycol 3350 17 GM Packet PO SCH (07:37)
[2022-05-14 07:55] VITALS: BP 124/68; TEMP 98
== END 2022-05-14 16:06 | disposition expired | DRG 951 ==
LOC: 2NO 15:30 → T4-B 20:05
PROVIDERS: ADMIT Family Medicine; ATTEND Family Medicine
DX: Z51.5 Encounter for palliative care (principal); J96.01 Acute respiratory failure with hypoxia; J93.9 Pneumothorax, unspecified; R64 Cachexia; Z68.1 Body mass index [BMI] 19.9 or less, adult; F05 Delirium due to known physiological condition; Z66 Do not resuscitate; Z20.822 Contact with and (suspected) exposure to COVID-19; J44.9 Chronic obstructive pulmonary disease, unspecified; J84.10 Pulmonary fibrosis, unspecified; I10 Essential (primary) hypertension; K21.9 Gastro-esophageal reflux disease without esophagitis; F03.90 Unspecified dementia, unspecified severity, without behavioral disturbance, psychotic disturbance, mood disturbance, and anxiety; Z90.49 Acquired absence of other specified parts of digestive tract
CPT/HCPCS: J2060; J2270